=== PATIENT | male | born 1995 | race Caucasian/White ===

== ENCOUNTER 2018-08-08 20:18 | Emergency (ER) | payer OTHER ==
[2018-08-08 20:18] VITALS: BP 136/80
--- NOTE | 2018-08-08 21:26 | RAD ---
EXAM: CT Head without IV contrast CLINICAL HISTORY: Fall, head injury. Bruising and swelling to right side of forehead COMPARISON: None. TECHNIQUE: Routine CT of the head without contrast. Soft tissues and bone windows were reviewed. PQRS compliance statement - One or more of the following individualized dose reduction techniques were utilized for this study: 1. Automated exposure control 2. Adjustment of the mA and/or kV according to patient size 3. Use of iterative reconstruction technique FINDINGS: There is no evidence of hemorrhage, mass or extra-axial fluid collection. Goff-white differentiation is maintained with no evidence of edema. There is no mass effect or shift of the intracranial structures. The ventricles, basilar cisterns and cortical sulci are normal in size and configuration for the patients stated age. The cerebellum and brainstem are unremarkable. The calvarium demonstrates no evidence of fracture or focal lesion. There is normal aeration of the visualized paranasal sinuses and mastoid air cells. The visualized portions of the orbits are normal. IMPRESSION: No evidence for acute intracranial process. Electronically signed by: Kendell Loving MD (08/08/2018 9:23 PM) [facility]
[2018-08-08] MEDS ORDERED: IBUPROFEN 400 MG TABLET. PO ONE (21:30)
[2018-08-08] MEDS ORDERED: DEXAMETHASONE 4 MG TABLET PO ONE (21:30)
[2018-08-08] MEDS ORDERED: BUTA1TAB23 PO (21:48)
--- NOTE | 2018-08-08 21:48 | PHYS DOC ---
Past History Past Medical History: No Pertinent History Past Surgical History: No Surgical History Additional Smoking Information: Vape Alcohol Use: Occasionally Drug Use: None Adult General Chief Complaint Chief Complaint: HEAD, FACE, NECK, TRAUMA HPI HPI 23-year-old male presents with report of headache which is progressively gotten worse throughout the day today. Patient did note a contusion to his right for head which he does not remember receiving. Patient was drinking excessively the night before and does not recall any events. Denies any neck pain. Denies use of blood thinners. Denies fever or chills. Patient reports he went to [facility] for evaluation and was instructed that he may need a head CT for further evaluation. Review of Systems Review of Systems Constitutional: Denies fever or chills [] Eyes: Denies change in visual acuity, redness, or eye pain [] HENT: Denies nasal congestion or epistaxis Respiratory: Denies cough or shortness of breath [] Cardiovascular: Denies chest pain or palpitations GI: Denies abdominal pain, nausea, vomiting, or diarrhea [] : Denies dysuria or hematuria [] Musculoskeletal: Denies back pain or joint pain [] Integument: Denies rash; reports right head contusion/swelling Neurologic: Reports headache; denies focal weakness or sensory changes [] Complete systems were reviewed and found to be within normal limits, except as documented in this note. Current Medications Current Medications Current Medications Medications (Trade) Dose Ordered Sig/Rocio Start Time Stop Time Status Last Admin Dose Admin Dexamethasone (Decadron) 10 mg 1X ONCE 08/08/18 21:30 08/08/18 21:31 DC Ibuprofen (Motrin) 400 mg 1X ONCE 08/08/18 21:30 08/08/18 21:31 DC Allergies Allergies Allergies Coded Allergies Type Severity Reaction Last Updated Verified Penicillins Allergy Unknown 08/08/18 Yes Physical Exam Physical Exam Constitutional: Well developed, well nourished, no acute distress, non-toxic appearance. [] HENT: Normocephalic, atraumatic, bilateral TMs normal, nose normal. [] Eyes: PERRL, EOMI, conjunctiva normal, no discharge. [] Neck: Normal range of motion, no midline tenderness, supple, no meningeal signs Cardiovascular: Heart rate regular rhythm, no murmur [] Lungs & Thorax: Bilateral breath sounds clear to auscultation [] Abdomen: Soft, no tenderness Skin: Warm, dry, no erythema, small contusion noted to right forehead, no laceration Extremities: No tenderness,, ROM intact, no edema. [] Neurologic: Alert and oriented X 3, normal motor function, normal sensory function, no focal deficits noted. [] Psychologic: Affect normal, judgement normal, mood normal. [] Current Patient Data Vital Signs Vital Signs Date Time Temp Pulse Resp B/P (MAP) Pulse Ox O2 Delivery O2 Flow Rate FiO2 08/08/18 20:18 98.4 86 20 100 Room Air EKG EKG [] Radiology/Procedures Radiology/Procedures [] Course & Med Decision Making Course & Med Decision Making Neurologically intact male presents with report of head injury yesterday which patient does not remember due to EtOH intoxication with progressive headache throughout the day. Patient without any midline cervical spine tenderness. No meningeal signs appreciated. Patient is afebrile. No signs of skull fracture. CT head obtained due to poor history of how injury was obtained. CT head without acute process. Symptomatic treatment provided with interval improvement of symptoms. Patient stable for discharge with outpatient follow-up with PCP. Discussed findings and plan with patient and family, who acknowledge understanding and agreement. Dragon Disclaimer Dragon Disclaimer This electronic medical record was generated, in whole or in part, using a voice recognition dictation system. Departure Departure: Impression: Primary Impression: Head contusion Additional Impression: Headache Disposition: 01 HOME, SELF-CARE Condition: STABLE Referrals: PCP,NO (PCP) Patient Instructions: Facial or Scalp Contusion, [id number], Headache, FAQs Scripts Butalb/Acetaminophen/Caffeine ([id number]) 1 Each Tablet 1 EACH PO Q6HRS PRN for HEADACHE, #14 TAB Prov: PB LONG DO 08/08/18 Problem Qualifiers Primary Impression: Head contusion Encounter type: initial encounter Contusion of head detail: scalp Qualified Codes: S00.03XA - Contusion of scalp, initial encounter Additional Impression: Headache Headache type: post-traumatic Headache chronicity pattern: acute headache Intractability: intractable Qualified Codes: G44.311 - Acute post-traumatic headache, intractable PB LONG DO Aug 08, 2018 21:48
[2018-08-08] MEDS ORDERED: DEXAMETHASONE SOD PHOS 10 MG/ML VIAL PO ONE (22:00)
== END 2018-08-08 22:00 | disposition home or self-care (01) ==
LOC: ER 20:18
DX: S00.03XA Contusion of scalp, initial encounter (principal); R51 Headache; F17.290 Nicotine dependence, other tobacco product, uncomplicated; Z88.0 Allergy status to penicillin; X58.XXXA Exposure to other specified factors, initial encounter; Y93.89 Activity, other specified; Y92.89 Other specified places as the place of occurrence of the external cause; Y99.8 Other external cause status
CPT/HCPCS: 70450; 99284; J8540